=== PATIENT | female | born 1965 | race Caucasian/White ===

== ENCOUNTER 2016-12-29 07:04 | Day surgery (SDC) | payer OTHER ==
[2016-12-26 10:11] VITALS: BMI 47.2
[2016-12-29] MEDS ORDERED: LIDOCAINE HCL/PF 2% SDV 5ML VIAL ONE (08:24)
[2016-12-29] MEDS ORDERED: PROPOFOL 20 ML ONE ×2 (08:24)
[2016-12-29 09:16] VITALS: TEMP 97.5
[2016-12-29 09:38] VITALS: PULSE 60
[2016-12-29 15:00] VITALS: BP 136/74
--- NOTE | 2016-12-30 13:12 | PATH ---
Surgical Pathology Report Patient Name: JANETTE MCKENZIE [facility]. Rec. #: [id number] /Age/Gender: 1965 (Age: 51) / F Account: [id number] Location: U-ENDOSCOPY Taken: 12/29/2016 Received: 12/29/2016 Reported: 12/30/2016 Physicians: Jeff Sung M.D. Specimen(s) Received A: POLYP SIGMOID B: BX POLYPS DESCENDING COLON Clinical History Polyp adenoma surveillance Colon polyps, diverticulosis Final Diagnosis A. COLON, SIGMOID, BIOPSY: MULTIPLE PORTIONS OF HYPERPLASTIC POLYP B. COLON, DESCENDING, BIOPSY: HYPERPLASTIC POLYP. Electronically Signed All Grullon M.D. Gross Description A. Received in formalin, labeled "biopsy polyp sigmoid" are 5 crowe, irregular portions of soft tissue ranging from 0.2-0.9 cm. in greatest dimension. The specimens are submitted in toto in one cassette. B. Received in formalin, labeled "biopsy polyps descending" are 3 crowe, irregular portions of soft tissue ranging from 0.2-0.3 cm. in greatest dimension. The specimens are submitted in toto in one cassette. DL/12/29/2016 saudi/12/29/2016
== END 2016-12-29 11:00 | disposition home or self-care (01) ==
LOC: JASU-ENDO 07:04
PROVIDERS: ATTEND Internal Medicine Gastroenterology
PROC: 0DBN8ZX Excision of Sigmoid Colon, Via Natural or Artificial Opening Endoscopic, Diagnostic (ICD-10-PCS; 2016-12-29)
PROC: 0DBM8ZX Excision of Descending Colon, Via Natural or Artificial Opening Endoscopic, Diagnostic (ICD-10-PCS; principal; 2016-12-29 08:00)
DX: Z12.11 Encounter for screening for malignant neoplasm of colon (principal); Z86.010 Personal history of colon polyps; D12.4 Benign neoplasm of descending colon; D12.5 Benign neoplasm of sigmoid colon; K57.30 Diverticulosis of large intestine without perforation or abscess without bleeding
CPT/HCPCS: 88305-TC

== ENCOUNTER 2023-07-22 04:19 | Day surgery (SDC) | payer OTHER ==
[2023-07-20 11:39] VITALS: BMI 46.0
[2023-07-22 09:48] VITALS: RESP 20; TEMP 97.8
[2023-07-22 09:51] VITALS: BP 101/83; PULSE 60
== END 2023-07-22 11:25 | disposition home or self-care (01) ==
LOC: JASU-ENDO 04:19
PROVIDERS: ATTEND Internal Medicine Gastroenterology
PROC: 0DBP8ZX Excision of Rectum, Via Natural or Artificial Opening Endoscopic, Diagnostic (ICD-10-PCS; principal; 2023-07-22 09:00)
DX: Z12.11 Encounter for screening for malignant neoplasm of colon (principal); D12.8 Benign neoplasm of rectum; K64.4 Residual hemorrhoidal skin tags; K57.30 Diverticulosis of large intestine without perforation or abscess without bleeding; Z86.010 Personal history of colon polyps; Z80.0 Family history of malignant neoplasm of digestive organs
CPT/HCPCS: 88305-TC